=== PATIENT | female | born 2005 | race Caucasian/White ===

== ENCOUNTER 2024-04-15 20:54 | Emergency (ER) | payer OTHER, SELFPAY ==
[2024-04-15 21:02] VITALS: BP 115/82; PULSE 96; RESP 20; TEMP 37; O2SAT 100; BMI 22.5
[2024-04-15 21:15] LABS: MANUAL DIFF FLAG NO
[2024-04-15 21:20] LABS: Basophils Absolute Auto 0.1 X10*3/uL (0.0-0.2); Basophils Percent Auto 0.6 % (0-2); Eosinophils Absolute Auto 0.1 X10*3/uL (0.0-0.4); Eosinophils Percent Auto 1.6 % (0-4); Hemoglobin 14.9 g/dl (12.0-16.0); Imm Gran Abs Auto 0.02 X10*3/uL (0.00-0.03); Imm Gran Pct Auto 0.2 % (0.0-0.4); Lymphocytes Absolute Auto 2.7 X10*3/uL (1.2-4.9); Lymphocytes Percent Auto 30.2 % (20-40); Mean Corpuscular HGB Conc 34.7 g/dl (31.0-35.0); Mean Corpuscular Hemoglobin 29.7 pg (27.0-33.0); Mean Corpuscular Volume 85.8 fL (80.0-98.0); Mean Platelet Volume 9.8 fL (9.4-12.3); Monocytes Absolute Auto 0.8 X10*3/uL (0.1-1.2); Monocytes Percent Auto 8.6 % (2-11); Neutrophils Absolute Auto 5.3 x10*3/uL (2.0-8.3); Neutrophils Percent Auto 58.8 % (45-73); Platelet Count 318 X10*3/uL (160-400); Red Blood Count 5.01 X10*6/uL (4.20-5.50); White Blood Count 8.9 X10*3/uL (4.8-10.8)
--- OUTSIDE RECORDS SUMMARY | 2024-04-16 01:11 | XMS_ITS | Continuity of Care Document ---
Author Organization 45 [facility] Address Unknown Care Team Providers Care Interior Wall Assembler Name Role Phone BLESSING, Primary Care Physician Unavailab le Encounter 45 Acct [id number] Date(s): 01/11/24 - 01/11/24 45 [facility] [address] [facility] [place] [address] Encounter Diagnosis Flank pain(Discharge Diagnosis) - 01/11/24 UTI (urinary tract infection)(Discharge Diagnosis) - 01/11/24 Discharge Disposition: Home or Self Care Attending Physician: MD Pisano Tiffany D Allergies, Adverse Reactions, Alerts Substance Reaction Severity Status Augmentin Active Assessment and Plan Diagnostic Tests Pending * Culture Urine 01/11/24 Functional Status 01/11/24 Discharge checklist - Emergency Discharg e instructions given to patient/family, Patient/family verbalized understanding of discharge instruc, Verbal/written discharge instructions given Transportation to destination [facility] Medications Bactrim DS 800 mg-160 mg oral tablet = 1 Tab, ORAL, BID, X 7 Day(s), # 14 Tab, Indication= UTI, uncomplicated, 0 Refill(s), Acute, Pharmacy: [facility], 149.8, cm, 12/05/23 8:50:00 HST, Height/Length (cm), 52, kg, 01/11/24 13:49:00 HST, Dose calculation weight (kg) Start Date: 01/11/24 Stop Date: 01/18/24 Status: Ordered Diflucan 150 mg oral tablet = 1 Tab, ORAL, [id number], # 2 Tab, Indication= Gynecologic, 0 Refill(s), Soft Stop, [facility], 149.8, cm, 12/05/23 8:50:00 HST, Height/Length (cm), 52, kg, 01/10/2413:49:00 HST, Dose calculation weight (kg) Start Date: 01/11/24 Status: Ordered Problem List Diagnosis Diagnosis Type Effective Dates Health Status Clinical Service Informant UTI (urinary tract infection) Discharge Diagnosis 01/11/24 Emergency medicine Flank pain Discharge Diagnosis 01/11/24 Emergency medicine Results Laboratory List Name Date Urinalysis w C/S IF Indicated 01/11/24 hCG Urine Qual 01/11/24 Most recent to oldest [Reference Range]: 1 BHCG/, Urine QUAL Negative 1 (01/11/24 1:50 PM) Urine Culture Y/N Yes (01/11/24 1:50 PM) UA - Source/Collect Type Urine Clean Cat *NA* (01/11/24 1:50 PM) UA - Color Yellow *NA* (01/11/24 1:50 PM) UA - Appearance Clear (01/11/24 1:50 PM) UA - Specific [place] [1.002-1.030 -] 1. 020 - (01/11/24 1:50 PM) UA - pH 6.5 *NA* (01/11/24 1:50 PM) UA - Protein 20 (01/11/24 1:50 PM) UA - Glucose Normal (01/11/24 1:50 PM) UA - Ketones Negative (01/11/24 1:50 PM) UA - Bilirubin Negative (01/11/24 1:50 PM) UA - Blood 2+ *ABN* (01/11/24 1:50 PM) UA - Urobilinogen Normal (01/11/24 1:50 PM) UA - Nitrites Negative (01/11/24 1:50 PM) UA - Leukocyte Esterase 75 *ABN* (01/11/24 1:50 PM) UA - WBC [0-5 /HPF] 22 /HPF *HI* (01/11/24 1:50 PM) UA - RBC [0-2 /HPF] >100 /HPF *HI* (01/11/24 1:50 PM) UA - Epithelials, Squamous 4 /LPF *NA* (01/11/24 1:50 PM) UA - Bacteria Negative /HPF (01/11/24 1:50 PM) 1Interpretive Data: This test detects the presence of hCG at the sensitivity of 20 mIU/mL. If negative results occur and is still suspected, it is good practice to re-sample and re-test patients after 48 hours. Urine specimens with a low specific gravity may not be sales representative gas service for levels of hCG. The test may need to be repeated using a first morning specimen. If detectable levels of hCG are found under certain pathological conditions, such as trophoblastic disease, the test will give a positive result. Radiology Reports * Exam Date Time Procedure Performing Provider Status 01/11/24 3:24 PM US Renal Fara Palomares; Auth (V erified) Notes: (US Renal) Reason For Exam: Kidney Stone REPORT PROCEDURE: US Renal REASON FOR EXAM: Kidney Stone. COMPARISON: CT 01/04/2024. FINDINGS: Right kidney: 9.0 x 4.0 x 4.2 cm. Two 2 mm echogenic foci. No hydronephrosis. Left kidney: 10.5 x 3.3 x 4.8 cm. Two 2 mm echogenic foci. No hydronephrosis. Bladder: Bladder is normal without wall thickening or mass. Bilateral ureteral jets are present. IMPRESSION: Bilateral renal echogenic foci measuring up to 2 mm, likely represent renal calculi. Nohydronephrosis. Signed by: Lauri Lea MD on 01/11/2024 15:38 HST Final Vital Signs Most recent to oldest [Reference Range]: 1 2 3 Temperature (F) [97-100.4 DegF] 97.8 DegF (01/11/24 1:49 PM) Peripheral Pulse Rate [60-99 bpm] 92 bpm (01/11/24 3:57 PM) 107 bpm *HI* (01/11/24 3:22 PM) 100 bpm *HI* (01/11/24 1:49 PM) Respiratory rate [14-20 br/min] 18 br/min (01/11/24 3:57 PM) 19 br/min (01/11/24 3:22 PM) 18 br/min (01/11/24 1:49 PM) Blood Pressure [90-139/60-89 mmHg] 120/85mmHg (01/11/24 3:57 PM) 135/86mmHg (01/11/24 3:22 PM) 142/89mmHg *HI* (01/11/24 1:49 PM) Pulse Oximetry 98 % (01/11/24 3:57 PM) 100 % (01/11/24 3:22 PM) 100 % (01/11/24 1:49 PM) MAP Non-Invasive [65-110 mmHg] 96 mmHg (01/11/24 3:57 PM) 102 mmHg (01/11/24 3:22 PM) Temp site Oral (01/11/24 1:49 PM) Weight (kg) 52 kg (01/11/24 1:49 PM) Dose calculation weight (kg) 52 kg (01/11/24 1:49 PM) Weight percentile per age 23.04 % 1 (01/11/24 1:49 PM) Weight Z-score -0.74 2 (01/11/24 1:49 PM) Neurological norm Alert, Age appropriate, Behavior appropriate, Opens eyes spontaneously, Oriented X 4, Verbal response appropriate (01/11/24 2:14 PM) 1Result Comment: ^~:!Percentile Source -CDC 2Result Comment: ^~:!ZScore Source -CDC Social History Social History Type Response Smoking Status Is there a smoker in the household? No; *Do you have concerns about tobacco use in household? No;Never (less than 100 in lifetime) entered on: 12/05/23 Sex Female Patient Care team information Care Team Personnel Name: NONE, Position: ZZNo Position Defined Member Role: Primary Care Physician Care Team Related Persons Name: SUHA BILLINGSLEY Address: Home
--- OUTSIDE RECORDS SUMMARY | 2024-04-16 01:11 | XMS_ITS | Continuity of Care Document ---
Author Organization 45 [facility] Address Unknown Care Team Providers Care Production Lapping Machine Operator Name Role Phone MD BLESSING Primary Care Physician Unavailab le Encounter 45 Acct [id number] Date(s): 12/05/23 - 12/05/[address] [facility] [address] [place] [address] Encounter Diagnosis Foreign body in eye(Discharge Diagnosis) - 12/05/23 Left eye pain(Discharge Diagnosis) - 12/05/23 Discharge Disposition: Home or Self Care Attending Physician: MD Brooks Jonathan D Allergies, Adverse Reactions, Alerts Substance Reaction Severity Status Augmentin Active Functional Status 12/05/23 Discharge checklist - Emergency Patient/ family verbalized understanding of discharge instruc Transportation to destination [facility] Medications ciprofloxacin ophthalmic 0.3% solution 2 Drop, OPHTHALM, Q4H, X 5 Day(s), # 5 mL, 0 Refill(s), Acute, Pharmacy: [facility], 149.8, cm, 12/05/23 8:50:00 HST, Height/Length (cm), 52.1, kg, 12/05/23 8:50:00 HST, Dose calculation weight (kg) Start Date: 12/05/23 Stop Date: 12/10/23 Status: Ordered Problem List Diagnosis Diagnosis Type Effective Dates Health Status Cl inical Service Informant Foreign body in eye Discharge Diagnosis 12/05/23 Left eye pain Discharge Diagnosis 12/05/23 Non-Specified Vital Signs Most recent to oldest [Refer ence Range]: 1 2 Temperature (F) [97-100.4 DegF] 99.0 Deg F (12/05/23 8:50 AM) Peripheral Pulse Rate [60-99 bpm] 81 bpm (12/05/23 10:46 AM) 84 bpm (12/05/23 8:50 AM) Respiratory rate [14-20 br/min] 16 br/mi n (12/05/23 10:46 AM) 18 br/min (12/05/23 8:50 AM) Blood Pressure [90-139/60-89 mmHg] 105/7 9mmHg (12/05/23 10:46 AM) 132/80mmHg (12/05/23 8:50 AM) Pulse Oximetry 100 % (12/05/23 10:46 AM) 100 % (12/05/23 8:50 AM) Temp site Oral (12/05/23 8:50 AM) Weight (kg) 52.1 kg (12/05/23 8:50 AM) Dose calculation weight (kg) 52.1 kg (12/05/23 8:50 AM) Body Mass Index [30 kg/m2] 23.22 kg/m2 (12/05/23 8:50 AM) Weight measured method Stated (12/05/23 8:50 AM) Height/Length (cm) 149.8 cm (12/05/23 8:50 AM) Height/Length method Stated (12/05/23 8:50 AM) [place] Body Weight Calculated 0 (12/05/23 8:50 AM) Height Percentile 1.88 % 1 (12/05/23 8:50 AM) Height Z-score -2.08 2 (12/05/23 8:50 AM) Weight percentile per age 23.59 % 3 (12/05/23 8:50 AM) BMI Percentile 65.94 % 4 (12/05/23 8:50 AM) BMI Z-score 0.41 5 (12/05/23 8:50 AM) Weight Z-score -0.72 6 (12/05/23 8:50 AM) Neurological norm Alert, Age appropriate, Behavior appropriate, Bilateral scent intact, Opens eyes spontaneously, Oriented X 4 (12/05/23 9:59 AM) 1Result Comment: ^~:!Percentile Source -CDC 2Result Comment: ^~:!ZScore Source -[facility] 3Result Comment: ^~:!Percentile Source -[facility] 4Result Comment: ^~:!Percentile Source -[facility] 5Result Comment: ^~:!ZScore Source -CDC 6Result Comment: ^~:!ZScore Source -[facility] Social History Social History Type Response Smoking Status Is there a smoker in the household? No; *Do you have concerns about tobacco use in household? No;Never (less than 100 in lifetime) entered on: 12/05/23 Sex Female Patient Care team information Care Team Personnel Name: NONE, Position: [place] Position Defined Member Role: Primary Care Physician
--- OUTSIDE RECORDS SUMMARY | 2024-04-16 01:11 | XMS_ITS | Continuity of Care Document ---
Author Organization 45 [facility] Address Unknown Care Team Providers Care Independent Crop Consultant Name Role Phone MD BLESSING Primary Care Physician Unavailab le Encounter 45 Acct [id number] Date(s): 01/04/24 - 01/04/[address] [address] Encounter Diagnosis Nephrolithiasis(Discharge Diagnosis) - 01/04/24 Discharge Disposition: Home or Self Care Attending Physician: MD Susi, Darlene Lara Allergies, Adverse Reactions, Alerts Substance Reaction Severity Status Augmentin Active Functional Status 01/04/24 Discharge checklist - Emergency Patient/ family verbalized understanding of discharge instruc, Prescriptions, Verbal/written discharge instructions given Transportation to destination [facility] Problem List Diagnosis Diagnosis Type Effective Dates Health Status Cl inical Service Informant Nephrolithiasis Discharge Diagnosis 01/04/24 Procedures Procedure Date Related Diagnosis Body Site Status ROUTINE VENIPUNCTURE 01/04/24 Comp leted Results Laboratory List Name Date Urinalysis w C/S IF Indicated 01/04/24 hCG Urine Qual (Urine Pregnanc y Screen) 01/04/24 CBC w Differential 01/04/24 Differential Automated* 01/04/24 Most recent to oldest [Reference Range]: 1 BHCG/, Urine QUAL Negative 1 (01/04/24 9:37 AM) Auto Neutrophil Percent [40.0-80.0 %] 58 .2 % (01/04/24 9:27 AM) Auto Neutrophil Absolute 6.0 K/uL *NA* (01/04/24 9:27 AM) Auto Lymphocyte Percent [18.0-45.0 %] 31 .0 % (01/04/24 9:27 AM) Auto Lymphocyte Absolute 3.2 K/uL *NA* (01/04/24 9:27 AM) Auto Monocyte Percent [3.0-12.0 %] 8.4 % (01/04/24: AM) Auto Monocyte Absolute 0.9 K/uL *NA* (01/04/24: AM) Auto Basophil Percent [<=2.0 %] 0.8 % (01/04/24: AM) Auto Basophil Absolute 0.1 K/uL *NA* (01/04/24: AM) Auto Eosinophil Percent [<=7.0 %] 1.6 % (01/04/24: AM) Auto Eosinophil Absolute 0.2 K/uL *NA* (01/04/24: AM) Urine Culture Y/N No (01/04/24: AM) WBC [3.5-10.4 K/uL] 10.3 K/uL (01/04/24: AM) RBC [3.60-5.40 M/uL] 5.12 M/uL (01/04/24: AM) HGB [12.0-16.0 gm/dL] 15.2 gm/dL (01/04/24: AM) HCT [37.0-47.0 %] 44.2 % (01/04/24: AM) MCV [82.0-101.0 fL] 86.2 fL (01/04/24: AM) MCH [26.0-34.0 pg] 29.6 pg (01/04/24: AM) MCHC [32.0-36.0 gm/dL] 34.4 gm/dL (01/04/24: AM) RDW [11.0-15.0 %] 12.5 % (01/04/24: AM) PLT [140-440 K/uL] 368 K/uL (01/04/24: AM) MPV [7.9-10.8 fL] 8.0 fL (01/04/24: AM) UA - Source/Collect Type Urine Voided *NA* (01/04/24 9:37 AM) UA - Color Yellow *NA* (01/04/24 9:37 AM) UA - Appearance Clear (01/04/24 9:37 AM) UA - Specific [place] [1.002-1.030 -] 1. 020 - (01/04/24 9:37 AM) UA - pH 6.5 *NA* (01/04/24 9:37 AM) UA - Protein 10 (01/04/24 9:37 AM) UA - Glucose Normal (01/04/24 9:37 AM) UA - Ketones Negative (01/04/24 9:37 AM) UA - Bilirubin Negative (01/04/24 9:37 AM) UA - Blood 3+ *ABN* (01/04/24 9:37 AM) UA - Urobilinogen Normal (01/04/24 9:37 AM) UA - Nitrites Negative (01/04/24 9:37 AM) UA - Leukocyte Esterase Negative (01/04/24 9:37 AM) UA - WBC [0-5 /HPF] 4 /HPF (01/04/24 9:37 AM) UA - RBC [0-2 /HPF] >100 /HPF *HI* (01/04/24 9:37 AM) UA - Epithelials, Squamous 3 /LPF *NA* (01/04/24 9:37 AM) UA - Bacteria Rare /HPF (01/04/24 9:37 AM) UA - Mucus Rare /LPF (01/04/24 9:37 AM) 1Interpretive Data: This test detects the presence of hCG at the sensitivity of 20 mIU/mL. If negative results occur and is still suspected, it is good practice to re-sample and re-test patients after 48 hours. Urine specimens with a low specific gravity may not be client support representative for levels of hCG. The test may need to be repeated using a first morning specimen. If detectable levels of hCG are found under certain pathological conditions, such as trophoblastic disease, the test will give a positive result. Radiology Reports * Exam Date Time Procedure Performing Provider Status 01/04/24 11:[address] Abdomen/Pelvis WO Contrast Tariq Salgado; Hans (Verified) Notes: (CT Abdomen/Pelvis WO Contrast) Reason For Exam: Kidney Stone REPORT CT Abdomen/Pelvis WO Contrast Exam Date: 01/04/2024 10:55 AM HAST REASON FOR EXAM: Kidney Stone. Urinary frequency. Lower abdominal pain. TECHNIQUE: Multiplanar nonenhanced images of the abdomen and pelvis were reconstructed. IV contrast: None. Oral contrast: Present. CT was performed with automated exposure control, or adjustment of the MA and/or KV according to the patient's size, or with the use of iterative reconstruction technique. Comparison: None. FINDINGS: Without IV contrast subtle intraparenchymal lesions may be missed. Lung bases: Unremarkable. Liver: Mild hepatomegaly. Gallbladder and biliary system: Unremarkable. Spleen: Unremarkable. Small accessory spleen. Pancreas: Unremarkable. Adrenal glands: Unremarkable. Kidneys, collecting systems, ureters: Couple of 2 mm nonobstructing right lower pole renal calculi.No left urolithiasis. No hydronephrosis bilaterally. No obvious renal mass bilaterally on this noncontrast study. Bladder: Unremarkable. Reproductive: Unremarkable. Retroperitoneum: No AAA. No enlarged lymph nodes. Bowel: Unremarkable. Appendix: Appendix is normal. Intra-abdominal inflammatory changes: None. Free air: None. Free fluid: Minimal free fluid in the cul-de-sac. IMPRESSION: 1. Couple of 2 mm nonobstructing right lower pole renal calculi. No left urolithiasis. No hydronephrosis bilaterally. 2. No acute diverticulitis. Appendix is unremarkable. No acute intra-abdominal inflammatory changes. 3. Minimal free fluid in the cul-de-sac. 4. Mild hepatomegaly. Signed by: Sergey Sandoval MD on 01/04/2024 11:38 HST Final Vital Signs Most recent to oldest [Reference Range]: 1 2 3 Temperature (F) [97-100.4 DegF] 98 DegF (01/04/24 12:26 PM) 98.2 DegF (01/04/24 9: AM) Peripheral Pulse Rate [60-99 bpm] 90 bpm (01/04/24 12: PM) 91 bpm (01/04/24 10:30 AM) 92 bpm (01/04/24 9: AM) Respiratory rate [14-20 br/min] 16 br/min (01/04/24 12:26 PM) 16 br/min (01/04/24 10:30 AM) 18 br/min (01/04/24 9:26 AM) Blood Pressure [90-139/60-89 mmHg] 120/81mmHg (01/04/24 12:26 PM) 124/82mmHg (01/04/24 10:30 AM) 134/89mmHg (01/04/24 9:26 AM) Pulse Oximetry 99 % (01/04/24 12:26 PM) 99 % (01/04/24 10:30 AM) 98 % (01/04/24 9:26 AM) Weight (kg) 52 kg (01/04/24 9: AM) Dose calculation weight (kg) 52 kg (01/04/24 9:26 AM) Weight percentile per age 23.04 % 1 (01/04/24 9:26 AM) Weight Z-score -0.74 2 (01/04/24 9:26 AM) 1Result Comment: ^~:!Percentile Source -CDC 2Result Comment: ^~:!ZScore Source -[facility] Social History Social History Type Response Smoking Status Is there a smoker in the household? No; *Do you have concerns about tobacco use in household? No;Never (less than 100 in lifetime) entered on: 12/05/23 Sex Female Patient Care team information Care Team Personnel Name: BLESSING, Position: ZJAVIERo Position Defined Member Role: Primary Care Physician Care Team Related Persons Name: SUHA BILLINGSLEY Address: Home
[2024-04-16 01:25] VITALS: BP 147/81; PULSE 74; RESP 16; TEMP 36.8; O2SAT 96
[2024-04-16] MEDS: Fluorescein Sodium STRIP 1 STRIP EYE-LEFT (01:47)
[2024-04-16] MEDS: Tobramycin Sulfate 0.3% Sol Op 5 ML BTL 2 DROP EYE-LEFT (01:47)
[2024-04-16] MEDS: Clindamycin HCL 300 MG CAPSULE PO (01:48)
--- NOTE | 2024-04-16 02:08 | ED_ITS ---
HPI - General Adult General Chief complaint: General Medical Stated complaint: object in L eye, toe infection Time Seen by Provider: 04/16/24 01:32 Source: patient Mode of arrival: ambulatory Limitations: no limitations History of Present Illness ED Provider: vishal LOPEZ narrative: Patient apparently patient was wearing contact lenses and was at [facility] small piece of howard particle went to the left eye patient fell slight irritation [place] with a contact lenses on after few hours noticed irritation to the left eye also patient has pedicure about a week ago on right greater toe noticed increased pain and redness for last 2 days Related Data Previous Rx's ?Medication ?Instructions ?Recorded clindamycin HCl 300 mg capsule 300 mg PO TID #30 caps 04/16/24 tobramycin 0.3 % eye drops 2 drp ophthalmic-Left Q4H #5 mL 04/16/24 Allergies Allergy/AdvReac Type Severity Reaction Status Date / Time amoxicillin [From Augmentin] Allergy Vomiting Verified 04/15/24 21:04 clavulanic acid Allergy Vomiting Verified 04/15/24 21:04 [From Augmentin] Review of Systems 2 Review of Systems: Yes all other systems are reviewed and are negative [facility] Social History Social History Advance Directives: No Advance Directives Information Provided: Yes Do you have a plan to hurt others: No Plan Physical Exam ED Vital Signs: Vital Signs - 24 hr 04/15/24 21:02 04/16/24 01:25 Temperature 98.6 F 98.3 F Pulse Rate 96 74 Respiratory Rate 20 16 Blood Pressure 115/82 147/81 H Pulse Oximetry 100 96 Oxygen Delivery Method Room Air Room Air BMI result Body Mass Index 22.5 Appearance: Alert. Oriented X3. No acute distress. Eyes: Left eye slightly injected no foreign body seen no corneal abrasion seen slight haziness of cornea at around 02:00 o'clock position anterior chamber normal fluorescein uptake negative ENT: Pharynx normal. Oral Mucosa moist Neck: Normal inspection. Neck supple. CVS: Normal heart rate and rhythm. Pulses normal. Respiratory: No respiratory distress. Equal air entry bilateral, Abdomen: Soft and nontender. Bowel sounds are present, Skin: Skin warm and dry. Normal skin color. Normal skin turgor. Extremities: No lower extremity edema. No calf tenderness slight tenderness and redness of right greater toe at the base no pus discharge Neuro: Oriented X 3. Medications Administered Discontinued Medications Generic Name Dose Route Start Last Admin Trade Name [place] PRN Reason Stop Dose Admin Clindamycin HCl 300 mg 04/16/24 01:42 04/16/24 01:48 Clindamycin Hcl 300 Mg Capsule PO 04/16/24 01:43 300 mg ONCE ONE Administration Fluorescein Sodium 1 strip 04/16/24 01:41 04/16/24 01:47 Fluorescein Sodium Strip EYE-LEFT 04/16/24 01:42 1 strip ONCE ONE Administration Tobramycin Sulfate 2 drop 04/16/24 01:41 04/16/24 01:47 Tobramycin Sulfate 0.3% Poly Op 5 Ml Btl EYE-LEFT 04/16/24 01:42 2 drop ONCE ONE Administration Medical Decision Making Medical Decision Making [facility] Narrative: Patient with left eye conjunctivitis for been in dirty water with contact lens on also has ingrown nail early infection will give clindamycin and tobramycin eyedrops Lab Data [facility] Lab Attestation statement: I reviewed the patient's lab results. 04/15/24 21:12 Labs: Lab Results 04/15/24 Range/Units 21:12 WBC 8.9 (4.8-10.8) X10*3/uL RBC 5.01 (4.20-5.50) X10*6/uL Hgb 14.9 (12.0-16.0) g/dl Hct 43.0 (37.0-47.0) % MCV 85.8 (80.0-98.0) fL MCH 29.7 (27.0-33.0) pg MCHC 34.7 (31.0-35.0) g/dl RDW 12.0 (11.0-16.0) % Plt Count 318 (160-400) X10*3/uL MPV 9.8 (9.4-12.3) fL Immature Gran % (Auto) 0.2 (0.0-0.4) % Neut % (Auto) 58.8 (45-73) % Lymph % (Auto) 30.2 (20-40) % [place] % (Auto) 8.6 (2-11) % Eos % (Auto) 1.6 (0-4) % Baso % (Auto) 0.6 (0-2) % Lymph # (Auto) 2.7 (1.2-4.9) X10*3/uL [place] # (Auto) 0.8 (0.1-1.2) X10*3/uL Eos # (Auto) 0.1 (0.0-0.4) X10*3/uL Baso # (Auto) 0.1 (0.0-0.2) X10*3/uL Abs Immat Gran (auto) 0.02 (0.00-0.03) X10*3/uL Absolute Neuts (auto) 5.3 (2.0-8.3) x10*3/uL Absolute Nucleated RBC 0.000 (0.0-0.012) X10*3/uL Nucleated RBC % (auto) 0.0 (0.0-0.2) /100WBC Discharge Plan Discharge Clinical Impression: Conjunctivitis, left eye, Ingrowing toenail of right foot Patient Disposition: Home, Self-Care Instructions: Ingrown Nail (ED), Conjunctivitis (ED) Additional Instructions: Use eyedrops as provided 2 drops left eye every 4 hours until heals completely Do not use contact lenses until heals completely Antibiotics for toe infection as prescribed Report to the ER if worsening of the infection Prescriptions: New tobramycin 0.3 % drops 2 drp ophthalmic-Left Q4H Qty: 5 0RF clindamycin HCl 300 mg capsule 300 mg PO TID Qty: 30 0RF Print Language: [place]
[2024-04-16 02:30] VITALS: BP 147/81; PULSE 74; RESP 16; TEMP 36.8; O2SAT 96
== END 2024-04-16 02:31 | disposition home or self-care (01) ==
PROVIDERS: Emergency Provider Internal Medicine
DX: H10.9 Unspecified conjunctivitis (principal); L60.0 Ingrowing nail; H57.89 Other specified disorders of eye and adnexa; M79.674 Pain in right toe(s)
CPT/HCPCS: 36415; 85025; 99283